=== PATIENT | female | born 1930 | race Caucasian/White ===

== ENCOUNTER 2016-11-09 18:42 | Emergency (ER) | payer MEDICARE ==
[2016-11-09 19:13] VITALS: RESP 20
[2016-11-09] MEDS ORDERED: CEPHALEXIN 250 MG/5 ML BOTTLE PO ONE (19:27)
[2016-11-09] MEDS ORDERED: CEPHALEXIN 250 MG/5 ML BOTTLE ONE (19:30)
[2016-11-09 19:38] VITALS: BP 163/76; PULSE 83; TEMP 99.5; O2SAT 97
== END 2016-11-09 19:50 | disposition home or self-care (01) | DRG 603 ==
LOC: ED 18:42
DX: L03.116 Cellulitis of left lower limb (principal)
CPT/HCPCS: 99282

== ENCOUNTER 2016-11-25 21:57 | Emergency (ER) | payer MEDICARE ==
[2016-11-25] MEDS: SODIUM CHLORIDE 0.9% FLUSH 10 ML SOL IV PRN (22:10)
[2016-11-25] MEDS ORDERED: SODIUM CHLORIDE 0.9% 1000ML 500 ML IV ONE (22:13)
[2016-11-25] MEDS ORDERED: ONDANSETRON HCL 4 MG/2 ML SOL IV ONE (22:14)
[2016-11-25] MEDS ORDERED: ONDANSETRON HCL 4 MG/2 ML SOL ONE (22:18)
[2016-11-25 22:23] LABS: BASOPHILS % (AUTO) 0 % (0-3); EOSINOPHILS % (AUTO) 0 % (0-9); HEMATOCRIT 34 % (35-47); MEAN CORPUSCULAR HGB CONC 34.8 gm/dl (32.0-36.0); MEAN CORPUSCULAR VOLUME 86 fL (81-99); NEUTROPHILS % (AUTO) 82.1 % (37-80)
[2016-11-25] MEDS ORDERED: KETOROLAC TROMETHAMINE 30 MG/ML SOL ONE (22:23)
[2016-11-25] MEDS ORDERED: KETOROLAC TROMETHAMINE 30 MG/ML SOL IV ONE (22:25)
[2016-11-25 22:29] LABS: POTASSIUM 4.4 mMol/L (3.5-5.1)
[2016-11-25] MEDS ORDERED: MORPHINE SULFATE 10 MG/ML SOL IV ONE (22:44)
[2016-11-25] MEDS ORDERED: MORPHINE SULFATE 10 MG/ML SOL ONE (22:45)
[2016-11-25 23:20] LABS: APPEARANCE,URINE Slightly Cloudy; BILIRUBIN,URINE NEGATIVE (NEGATIVE); COLOR,URINE Yellow; GLUCOSE, URINE (UA) NEGATIVE (NEGATIVE); KETONES,URINE NEGATIVE (NEGATIVE); LEUKOCYTE ESTERASE ,URINE 1+ (NEGATIVE); NITRATE,URINE NEGATIVE (NEGATIVE); OCCULT BLOOD,URINE NEGATIVE (NEG-TRACE); PH,URINE 6.5; UROBILINOGEN,URINE 0.2 (0.2-1.0 EU)
[2016-11-25 23:21] LABS: RBC,URINE NEG (0-3AV/HPF)
[2016-11-25] MEDS ORDERED: PROCHLORPERAZINE EDISYLATE 5 MG/ML SOL ONE (23:30)
[2016-11-25 23:54] VITALS: TEMP 98.7
[2016-11-26 00:33] VITALS: O2SAT 99
[2016-11-26] MEDS ORDERED: MORPHINE SULFATE 10 MG/ML SOL IV ONE (00:33)
[2016-11-26] MEDS ORDERED: MORPHINE SULFATE 10 MG/ML SOL ONE (00:34)
[2016-11-26] MEDS: SODIUM CHLORIDE 0.9% FLUSH 10 ML SOL IV PRN (00:38)
[2016-11-26 01:57] VITALS: BP 172/69; PULSE 75; RESP 20
[2016-11-26] MEDS ORDERED: PROCHLORPERAZINE EDISYLATE 5 MG/ML SOL IV ONE (23:40)
== END 2016-11-26 01:44 | disposition short-term general hospital (02) | DRG 390 ==
LOC: ED 21:57
DX: K56.2 Volvulus (principal)
CPT/HCPCS: 74020; 74177; 80048; 81001; 85025; 96365; 96374; 96375; 99291; 99292; J0780; J1885; J2270; J2405; Q9967